=== PATIENT | female | born 1980 | race Caucasian/White ===

== ENCOUNTER 2022-07-14 08:16 | Observation (INO) ==
--- NOTE | 2022-07-06 10:06 | Anesthesiology Consultation ---
Date of Service July 06, 2022 Assessment & Plan (1) Encounter for pre-operative examination: - COVID screening: Per assessment on 07/06: No known COVID-19 positive contacts or current COVID-19 related symptoms. Travel screen negative. At surgeon discretion if preop Covid testing being done. - Check test AM DOS Chart Review Chart Review: Acceptable Risk for Surgery and Patient NOT seen in Pre Admission Testing History Surgery Operation Date: 07/14/22 09:50 Proposed Procedures p Total Laparoscopic Hysterectomy, Bilateral Salpingectomy, Cystoscopy, Possible Laparotomy - Graham Barrera MD Height/Weight Height: 5 ft 4 in Weight: 72.575 kg Allergies Allergy/AdvReac Type Severity Reaction Status Date / Time ergocalciferol (vitamin D2) Allergy Hives Verified 07/14/22 08:45 [From Vitamin D2] Medications Home Medications Medication Instructions Recorded Confirmed Last Taken furosemide 40 mg tablet 40 mg PO QAM 07/06/22 07/14/22 07/13/22 10:00 Past Medical History Medical History Abnormal uterine bleeding History of COVID-19 12/2021 (symptoms at time: cough, sore throat > resolved) Hypertension Status post hysteroscopy Past Surgical History Surgical History History of endometrial ablation S/P section x3 S/P cholecystectomy S/P colonoscopy Social History Smoking Status: Never smoker Do You Dip or Chew Tobacco: No Hx Alcohol Use: Yes alcohol intake frequency: a few times a month Hx Substance Use: No substance use type: does not use Physical Exam Vital Signs Last Vital Signs Temp 36.6 C 07/14/22 08:46 Pulse 50 L 07/14/22 08:46 Resp 18 07/14/22 08:46 BP 148/97 H 07/14/22 08:46 Pulse Ox 99 07/14/22 08:46 O2 Del Method 07/14/22 08:46 Testing Laboratory Results 07/14/22 08:34 POC Ur Test NEG 06/28/22 WBC 6.65 H/H 12.4/37.9 PLATELETS 303 SODIUM 140 POTASSIUM 3.8 CHLORIDE 103 CO2 36 BUN 15 CREATININE 1.0 GLUCOSE 92 Echocardiogram Date: 05/02/22 EF 55%. No diastolic dysfunction. Mild MR directed centrally. Trace TR centrally directed. Physiologic WI directed centrally.
[~2022-07-14 08:16] MED LIST: LR 15ML/HR IV SCH
[2022-07-14] MEDS ORDERED: ATROPINE SULFATE 0.1 MG/ML 10ML SYR IV PRN (09:19)
[2022-07-14] MEDS ORDERED: fentaNYL citrate 100 MCG/2 ML VIAL IV PRN (09:19)
[2022-07-14] MEDS ORDERED: ePHEDrine sulfate 50 MG/ML AMP IV PRN (09:19)
[2022-07-14] MEDS ORDERED: HYDROmorphone INJ 2 MG/ML SYR/VIAL IV PRN (09:19)
[2022-07-14] MEDS ORDERED: ONDANSETRON INJ 2 MG/ML 2 ML VIAL IV PRN ×2 (09:19→14:19)
[2022-07-14] MEDS ORDERED: DEXAMETHASONE SOD INJ 4 MG/ML VIAL ONE ×2 (09:29)
[2022-07-14] MEDS ORDERED: ROCURONIUM BROMIDE 10 MG/ML 5 ML VIAL IV ONE ×8 (09:29→13:54)
[2022-07-14] MEDS ORDERED: PROPOFOL IV EMULSION 10 MG/ML 20 ML VIAL IV ONE ×4 (09:29→13:08)
[2022-07-14] MEDS ORDERED: ONDANSETRON INJ 2 MG/ML 2 ML VIAL ONE ×2 (09:29→12:59)
[2022-07-14] MEDS ORDERED: LIDOCAINE 2% MPF LOCAL 5 ML VIAL INFIL ONE ×2 (09:29→10:20)
--- NOTE | 2022-07-14 10:07 | History & Physical Bridge Note ---
Date of Service July 14, 2022 History & Physical Bridge Note I have examined the patient, reviewed the History & Physical and in the interval since the performance of the History & Physical I have noted the following changes of clinical significance: no changes noted
[2022-07-14] MEDS ORDERED: MIDAZOLAM HCL 1 MG/ML 2ML VIAL ONE (10:19)
[2022-07-14] MEDS ORDERED: fentaNYL citrate 100 MCG/2 ML VIAL ONE (10:19)
[2022-07-14] MEDS ORDERED: METHYLENE BLUE 0.5% 10 ML VIAL ONE (10:30)
[2022-07-14] MEDS ORDERED: BUPIVACAINE 0.5 % 5 MG/1 ML MPF 30ML VIAL ONE (10:30)
[2022-07-14] MEDS ORDERED: ceFAZolin 330 MG/ML 1 GM VIAL ONE ×2 (10:44)
[2022-07-14] MEDS ORDERED: ARTIFICIAL TEARS OP OINT 3.5 GM TUBE ONE (11:08)
[2022-07-14] MEDS ORDERED: HYDROmorphone INJ 2 MG/ML SYR/VIAL ONE (11:16)
[2022-07-14] MEDS ORDERED: ceFAZolin 2000MG 2,000 MG/15 ML SYR IV ONE (11:38)
[2022-07-14] MEDS ORDERED: KETOROLAC 30 MG/ML VIAL ONE (12:48)
[2022-07-14] MEDS ORDERED: GLYCOPYRROLATE 0.2 MG/ML VIAL ONE ×2 (12:49→12:58)
[2022-07-14] MEDS ORDERED: TISSEEL FIBRIN SEALANT 10ML TOP ONE (12:49)
[2022-07-14] MEDS ORDERED: MAGNESIUM HYDROXIDE SUSP 30 ML UDC PO PRN (14:19)
[2022-07-14] MEDS ORDERED: oxyCODONE/ACETAMINOPHEN 5mg/325mg TAB PO PRN (14:19)
[2022-07-14] MEDS ORDERED: bisacodyL 10 MG SUPP PR PRN (14:19)
--- NOTE | 2022-07-14 14:19 | Post Operative Brief Note ---
Immediate Post Op Note v1 Date of Surgery July 14, 2022 Pre & Post Diagnosis Operation Date: 07/14/22 09:50 Pre-Op Diagnosis: Abnormal Uterine Bleeding Post-Op Diagnosis: Abnormal Uterine Bleeding I identified the patient and participated in the time-out.: Yes Procedure Operation Date: 07/14/22 09:50 Actual Procedures p Total Laparoscopic Hysterectomy, Bilateral Salpingectomy, Cystoscopy(Not Applicable) - Graham Barrera MD Surgeon Graham Barrera MD Identifier Horse [place] Estimated Blood Loss 20 Findings Consistent with Post-Op Diagnosis Drains Flores Catheter (placed by surgeon at start of case)
--- NOTE | 2022-07-14 14:55 | Anesthesiology Progress Note ---
Date of Service July 14, 2022 Anesthesia Post Procedure Vital Signs Vital Signs: Temp Pulse Pulse Resp BP Pulse Ox O2 Del Method 07/14/22 14:25 55 L 12 151/98 H 100 Oxymask 07/14/22 14:15 58 L 12 156/94 H 100 Oxymask 07/14/22 14:45 57 L 14 127/87 94 Room Air 07/14/22 14:35 53 L 12 157/89 H 98 Oxymask 07/14/22 14:09 36.0 C L 80 18 152/99 H 100 Oxymask 07/14/22 08:46 36.6 C 50 L 18 148/97 H 99 Room Air O2 Flow Rate 07/14/22 14:25 6 07/14/22 14:15 6 07/14/22 14:45 07/14/22 14:35 3 07/14/22 14:09 6 07/14/22 08:46 Pain Intensity Abdomen: Pain Intensity: 3 Transfer of Care Handoff Completed per policy Notes Mental Status: alert / awake / arousable and participated in evaluation Patient Amnestic to Procedure: Yes Nausea / Vomiting: adequately controlled Pain: adequately controlled Airway Patency, RR, SpO2: stable & adequate BP & HR: stable & adequate Hydration State: stable & adequate Anesthetic Complications: no major complications apparent and Pt Satisfied with anesthetic care
[2022-07-14] MEDS: IBUPROFEN 600 MG TAB PO PRN ×2 (15:44→21:28)
[2022-07-14] MEDS: oxyCODONE/ACETAMINOPHEN 5mg/325mg TAB PO PRN ×2 (18:04→22:42)
--- NOTE | 2022-07-14 20:58 | Operative Report (OR) ---
DATE OF PROCEDURE: 07/14/2022. INDICATION FOR SURGERY: This is a 42-year-old with abnormal uterine bleeding. The patient underwent an endometrial ablation in March 2022. Bleeding however, has not improved. Decision was therefore ma calvin to perform hysterectomy. PREOPERATIVE DIAGNOSES: 1. Abnormal uterine bleeding. 2. Failed endometrial ablation. POSTOPERATIVE DIAGNOSES: 1. Abnormal uterine bleeding. 2. Failed endometrial ablation. SURGEON: Graham Barrera MD. LOADING SUPERVISOR: EBEN Yang. ATTESTATION FOR LOADING SUPERVISOR: Chicken Fancier was necessary to help with manipulation and retraction in order to provide for safe surgery. PROCEDURE: 1. Total laparoscopic hysterectomy. 2. Bilateral salpingectomy. 3. Cystoscopy. ANESTHESIA: General. DRAINS: None. ESTIMATED BLOOD LOSS: 20 mL. URINE OUTPUT: 800 mL of clear urine at the end of procedure. INTRAVENOUS FLUIDS: 800 mL. SPECIMENS: 1. Uterus and cervix. 2. Left fallopian tube. 3. Right fallopian tube. INTRAOPERATIVE COMPLICATIONS: None. PATIENT CONDITION: Stable. DISPOSITION: Postanesthesia care unit. ATTESTATION: I performed the entire procedure. FINDINGS: Normal female escutcheon. No lesions in the vagina. Cervix appeared grossly normal. Lap aroscopic exam showed about 11-week size uterus. Both adnexa appeared grossly normal. The patient h ad had bilateral tubal ligation in the past. Rest of the abdominopelvic exam is unremarkable. DESCRIPTION OF PROCEDURE: The patient was taken to the operating room where she was prepped and drap ed in normal sterile fashion in dorsal lithotomy position. A heavy weighted speculum was placed in t he vagina. Valles retractor was used to retract the vagina. Uterine manipulator was placed in the genie arelis and around the cervix to help manipulate the uterus during laparoscopy. Flores catheter was place d in the bladder. Attention was paid to the abdominal part of the procedure where a supraumbilical incision was made wi th a scalpel. Veress needle was introduced into the abdomen at a 45-degree angle while tenting up th e abdomen. Once inside the abdomen, a suction and water drop test was performed to confirm intraabdo loyda placement. The abdomen was insufflated with 3 L of CO2 gas. The Veress needle was removed. A 5 mm trocar under direct visualization using a nonbladed trocar was introduced into the abdomen at a 45-degree angle. Once inside the abdomen, the laparoscope was repositioned. Three more accessory p orts were placed; on the left two 10 mm trocars were placed. These were done under direct visualizat ion. Nonbladed trocars were used as well. Another 5 mm trocar was placed on the right. The abdomen was examined. The general appearance of the abdomen and pelvis. The patient had had 3 C -sections and had some adhesions of the bladder to the lower segment of the uterus. Rest of the abdo minopelvic exam was unremarkable. The uterus, the fallopian tubes, the ureters and the uterosacrals, as well as bowel were identified. LigaSure was passed through the left accessory port. The left fa llopian tube was identified and grabbed 4 cm from the cornua of the uterus with the LigaSure and heredia sected. This was followed by opening of the left anterior leaf of the broad ligament. The midsectio n of the left fallopian tube, utero-ovarian and medial ovarian pedicles were transected as well. Jalen e procedure was performed on the contralateral side on the right. Anterior leaf of the broad ligamen t dissection was carried to the end of the vesicouterine peritoneum over the bladder using the Coughlin ic scalpel. Same procedure was carried out from the contralateral side. The posterior broad ligamen t peritoneum was carefully dissected also from both sides over the uterosacral arch in order to displ janeth the ureters laterally. Using traction and countertraction, the [place] retractor and irrigating probe was used to further d issect the bladder off the lower segment of the uterus. Bladder pillars and pubovesical fascia was d issected as well. The Harmonic scalpel was used to obtain hemostasis when needed. The uterine manipulator was now palpable over the vaginal tissue. The right uterine pedicles were sk eletonized and coagulated with the LigaSure. There was good hemostasis. Same procedure was performe d on contralateral side. The cardinal ligaments were transected on both sides. Once good hemostasis was obtained, colpotomy was performed using the LigaSure hook from both sides. The uterus was remov ed through the vagina while still attached to the uterine manipulator. A sponge was placed in a glove and placed in the vagina to help maintain pneumoperitoneum. With a grasper, the remaining section of the left fallopian tube was positioned anteromedially and tr ansected from the contralateral side using the LigaSure. Once again, there was good hemostasis. Anel cuadra was also delivered through the vagina colpotomy. EndoStitch closure device was passed through the 10 mm port on the left and using the [place] graspe r for traction, the colpotomy closure was performed. Uterosacral ligaments were incorporated into th e closure in order to decrease the risks of prolapse. Lapra-Tys were used with the EndoStitch. Attention was paid to the cystoscopy part of the procedure, where a cystoscope was placed into the bl adder. Evaluation of the bladder showed no blood, lesions. No sutures were seen in the bladder. Th e bubble sign was present in the bladder. Both ureteral orifices were identified and urine was seen jetting from both orifices freely. The cystoscope was removed. Attention was paid back to the abdom inal part of the procedure where the 10 mm ports were closed under direct visualization using a Carte r-Sylvia closure technique. Tisseel blood sealant had been placed on the colpotomy closure site pr eviously. There was good hemostasis. This was once again confirmed. The skin incisions of the 10 m m trocar sites were closed with sutures. The 5 mm trocar sites were closed with Dermabond. All instruments were removed from the abdomen and the vagina and accounted for x2 including sponges, needles, and retractors. The patient was sent to recovery in stable condition. Job ID: [id number]
[2022-07-14] MEDS: DOCUSATE SODIUM 100 MG CAP PO SCH (21:28)
[2022-07-14] MEDS: SIMETHICONE 80 MG CHEW PO PRN (22:42)
[2022-07-14] MEDS: LACTATED RINGER'S 1,000 ML IV SCH (23:34)
[2022-07-15] MEDS: LACTATED RINGER'S 1,000 ML IV SCH (04:48)
[2022-07-15 06:41] LABS: Basophils # (auto) 0.04 K/uL (0-0.2); Basophils % (auto) 0.3 %; Hematocrit (blood only) 26.5 % (34.1-44.9); Hemoglobin 8.6 g/dl (12.0-16.0); Immature Granulocytes # (auto) 0.06 K/uL (0.00-0.02); Immature Granulocytes % (auto) 0.5 %; Lymphocytes # (auto) 1.21 K/uL (1.2-3.4); Lymphocytes % (auto) 9.2 %; Mean Corpuscular Hemoglobin 29.9 pg (25.0-34.0); Mean Corpuscular Hgb Conc 32.5 g/dL (32.0-36.0); Mean Platelet Volume 11.7 fL (9.4-12.3); Monocytes # (auto) 0.79 K/uL (0.24-0.82); Neutrophils # (auto) 11.11 K/uL (1.4-6.5); Platelet Count 186 K/uL (130-400); RDW Coefficient of Variation 12.9 % (11.5-14.5); RDW Standard Deviation 42.7 fL (36.4-46.3); Red Blood Count 2.88 M/uL (3.93-5.22); White Blood Count 13.21 K/ul (4.8-10.8)
[2022-07-15 06:58] LABS: BUN Creatinine Ratio 9.9 (10-20); Creatinine Clr Calc Pharmacy 78.1 ml/min; Est GFR (African American) 88.9 ml/min; Est GFR (Non-African American) 76.7 ml/min; Potassium 3.5 mmol/L (3.5-5.1)
[2022-07-15] MEDS: DOCUSATE SODIUM 100 MG CAP PO SCH (07:24)
[2022-07-15] MEDS: IBUPROFEN 600 MG TAB PO PRN (07:24)
[2022-07-15] MEDS: SIMETHICONE 80 MG CHEW PO PRN (07:24)
[2022-07-15 07:42] VITALS: PULSE 69; TEMP 98.2; O2SAT 94
--- NOTE | 2022-07-15 09:37 | Obstetrical Progress Note ---
Date of Service July 15, 2022 Assessment & Plan (1) S/P laparoscopic hysterectomy: POD #1 pt doing well d/c home with institutions Subjective Review of Systems All systems reviewed & are unremarkable except as noted in HPI & below Physical Exam Constitutional WD/WN, vitals as above Eyes PERRL, conjunctivae normal, anicteric sclerae ENMT external ear and nose normal, oropharynx normal Neck trachea midline, no thyromegaly Respiratory normal respiratory effort, lungs clear to auscultation Cardiovascular RRR, no murmur, no edema Chest (Breasts) normal inspection/palpation of breasts Gastrointestinal (Abdomen) normal bowel sounds, soft, nontender, no hepatosplenomegaly Musculoskeletal no cyanosis or clubbing, extremities motor strength 5/5 Skin + incision (Incision clean,dry and intact) Neurologic patellar DTR's 2+ bilat, sensation intact Psychiatric A+Ox3, euthymic affect Genitourinary no vaginal lesions, no adnexal mass Lymphatic no cervical or axillary lymphadenopathy Results & Data ([facility]) Vital Signs (Past 12 Hours) Vital Signs Temp Pulse Resp BP Pulse Ox O2 Del Method 07/15/22 07:36 36.8 C 69 16 129/76 94 07/15/22 03:56 36.7 C 66 16 117/75 98 Room Air 07/14/22 23:36 36.8 C 82 16 145/72 H 95 Room Air
[2022-07-15 10:54] VITALS: BP 137/80
--- NOTE | 2022-07-15 21:48 | Discharge Summary (DS) ---
DATE OF ADMISSION: 07/14/2022 DATE OF DISCHARGE: 07/15/2022 HISTORY OF PRESENT ILLNESS: This is a 42-year-old status post failed endometrial ablation, who wishe d to undergo hysterectomy. On 07/14/2022, the patient presented to [facility] wher e she underwent total laparoscopic hysterectomy with bilateral salpingectomy and cystoscopy. Details of surgery are in the surgical note. The patient did well and has recovered well. Today, she has be en discharged home in stable condition. PAST MEDICAL HISTORY: History of menorrhagia. PAST SURGICAL HISTORY: Endometrial ablation. SOCIAL HISTORY: The patient denies tobacco, drug or alcohol use. FAMILY HISTORY: Noncontributory. ALLERGIES: THE PATIENT IS ALLERGIC TO ERGOCALCIFEROL, IT IS A FORM OF VITAMIN D. REVIEW OF SYSTEMS: Negative except as dictated in the HPI. VITAL SIGNS: Blood pressure this morning is 129/76, pulse is 69, respirations 16, temperature 36.8. LABORATORIES: Hemoglobin this morning is 8.6, hematocrit is 26.5. CONDITION ON DISCHARGE: Stable. PROCEDURES: Total laparoscopic hysterectomy, bilateral salpingectomy, and cystoscopy. PLAN ON DISCHARGE: The patient is discharged home with instructions regarding activity, diet, and [facility] appointment. Job ID: [id number]
== END 2022-07-15 12:15 | disposition home or self-care (01) ==
LOC: 4E1 08:16 → ASU 08:16
DX: Z80.42 Family history of malignant neoplasm of prostate; Z83.3 Family history of diabetes mellitus; Z86.16 Personal history of COVID-19; Z79.899 Other long term (current) drug therapy; N93.9 Abnormal uterine and vaginal bleeding, unspecified; Z82.49 Family history of ischemic heart disease and other diseases of the circulatory system